=== PATIENT | female | born 1975 | race Caucasian/White ===

== ENCOUNTER 2016-11-09 19:54 | Emergency (ER) | payer OTHER ==
[2016-11-09 20:43] LABS: BASOPHIL 0.8 % (0-2); EOSINOPHIL 0.6 % (0-5); HCT 40.5 % (37.0-47.0); HGB 14.2 g/dl (12.5-16.0); LYMPHOCYTE 35.5 % (15-48); MCH 31.3 pg (25.0-31.0); MCHC 35.1 g/dL (32.0-36.0); MCV 89.4 fL (78.0-100.0); MONOCYTE 6.5 % (0-12); MPV 8.9 fL (6.0-9.5); NEUTROPHIL 56.6 % (41-80); PLT 456 K/uL (150-400); RBC 4.53 M/uL (4.20-5.40); RDW 13.5 % (11.5-14.0); WBC 6.6 K/uL (4.0-10.5)
[2016-11-09 21:02] LABS: TROPONIN T < 0.010 ng/mL
[2016-11-09 21:04] LABS: ALBUMIN 3.5 g/dL (3.5-5.0); BILIRUBIN - TOTAL 0.3 mg/dL (0.1-1.0); CREATININE 0.6 mg/dL (0.5-1.0); GLOBULIN (CALCULATION) 3.2 g/dL (2.2-4.2); TOTAL PROTEIN 6.7 g/dL (6.4-8.3)
[2016-11-09 21:05] LABS: PRO-BNP 974 pg/mL (0-125)
== END 2016-11-10 00:18 | disposition home or self-care (01) ==
LOC: FER 19:54
PROVIDERS: Emergency Medicine Emergency Medical Services
DX: J44.0 Chronic obstructive pulmonary disease with (acute) lower respiratory infection (principal); J20.9 Acute bronchitis, unspecified; F17.210 Nicotine dependence, cigarettes, uncomplicated; Z87.01 Personal history of pneumonia (recurrent); Z88.0 Allergy status to penicillin; Z88.1 Allergy status to other antibiotic agents; Z79.51 Long term (current) use of inhaled steroids; Z79.899 Other long term (current) drug therapy
CPT/HCPCS: 36415; 36600; 71010; 71275; 80053; 82803; 83880; 84484; 85025; 85379; 87040; 93005; 94640; 94760; J1885; J2060; J2270; J2405; J2930; Q9967

== ENCOUNTER 2020-12-21 07:14 | Emergency (ER) | payer OTHER ==
[~2020-12-21 07:14] MED LIST: BACLOFEN10 MG PO; BENTYL10 MG PO; BREO ELLIPTA INH 200; CARAFATE S500 MG/TSP PO; CARAFATE1 GM PO; COMBIVENT RESPIM4 GM INH; COMPAZINE10 MG PO; DEXILANT60 MG PO; DICYCLOMINE 10M10 MG PO; DUONEB 2.5-0.5M1 AMP NEB; HYDROXYZINE 10M10 MG PO; KLONOPIN0.5 MG PO; LIPITOR20 MG PO; OMEPRAZOLE 20MG20 MG PO; PHENERGAN25 M1 PO; PHENERGAN25 MG PR; PREDNISONE 20MG20 MG PO; PREDNISONE10 MG PO; PROAIR HFA8.5 GM INH; PROMETHAZINE 2525 MG PO; QUETIAPINE FUM400 MG PO; RANITIDINE HCL150 M1 PO; RANITIDINE HCL150 MG PO; REMERON15 MG PO; VENTOLIN (2.5 MG/3 M INH
[2020-12-21 07:43] LABS: BASOPHIL 0.2 % (0-2); EOSINOPHIL 0 % (0-5); HCT 39.8 % (37.0-47.0); HGB 13.8 g/dl (12.5-16.0); LYMPHOCYTE 12.1 % (15-48); MCH 29.2 pg (25.0-31.0); MCHC 34.7 g/dL (32.0-36.0); MCV 84.3 fL (78.0-100.0); MONOCYTE 3.5 % (0-12); NEUTROPHIL 83.9 % (41-80); NRBC 0; PLT 357 K/uL (150-400); RBC 4.72 M/uL (4.20-5.40); WBC 14.7 K/uL (4.0-10.5)
[2020-12-21 08:05] LABS: ALBUMIN 3.8 g/dL (3.4-5.0); BILIRUBIN - TOTAL 0.6 mg/dL (0.2-1.0); BUN/CREAT RATIO (CALC) 13.8 RATIO; CREATININE 0.65 mg/dL (0.51-0.95); GLOBULIN (CALCULATION) 4.3 g/dL; POTASSIUM 3.2 mmol/L (3.5-5.1); TOTAL PROTEIN 8.1 g/dL (6.4-8.2)
[2020-12-21 08:10] LABS: LACTIC ACID 2.2 mmol/L (0.4-1.9)
[2020-12-21 08:43] LABS: BILIRUBIN NEGATIVE (NEGATIVE); BLOOD NEGATIVE Ery/uL (NEGATIVE); CLARITY CLEAR (CLEAR); COLOR YELLOW (YELLOW); GLUCOSE (U) NORMAL (NORMAL); LEUKOCYTES NEGATIVE Leu/uL (NEGATIVE); NITRITE NEGATIVE (NEGATIVE); PROTEIN 1+ mg/dL (NEGATIVE); UROBILINOGEN 0.2 mg/dL (0.2-1.0); pH >=9.0 (5.0-9.0)
[2020-12-21 08:52] LABS: BACTERIA TRACE; URINARY RBC RARE
== END 2020-12-21 12:43 | disposition home or self-care (01) ==
LOC: FER 07:14
PROVIDERS: Emergency Medicine
DX: K31.84 Gastroparesis (principal); R51.9 Headache, unspecified; J44.9 Chronic obstructive pulmonary disease, unspecified; F17.200 Nicotine dependence, unspecified, uncomplicated; Z98.890 Other specified postprocedural states; Z88.0 Allergy status to penicillin; Z88.1 Allergy status to other antibiotic agents; Z87.19 Personal history of other diseases of the digestive system
CPT/HCPCS: 36415; 74022; 80053; 81001; 83605; 83690; 85025; J1200; J1885; J2270; J2405; J2765; J7030; Q9967

== ENCOUNTER → 2021-04-30 | Day surgery (SDC) | payer OTHER ==
[~2021-04-30] VITALS: Ht 170.2 cm; Wt 90.7 kg
[~2021-04-30] MED LIST changes: +BROMPHENIR-PSE118 ML PO; +COMBIVENT RESPIM4 GM PO; +HABITROL14 MG TOP; +LANSOPRAZOLE30 MG PO; +LINZESS145 MCG PO; +LIPITOR40 MG PO; +LISINOPRIL20 MG PO; +MUCINEX600 MG PO; +NORCO 5-325 TA1 EACH PO; +PEPCID AC20 MG PO; +PERCOCET 5-3251 EACH PO; +PHENERGAN12.5 M1 PO; +REGLAN10 MG PO; +SEROQUEL 100MG100 MG PO; +VIBRAMYCIN100 MG PO; +ZOFRAN4 M1 PO
[2021-04-30 09:49] LABS: HCT 34.9 % (37.0-47.0); HGB 11.3 g/dl (12.5-16.0); MCH 28.5 pg (25.0-31.0); MCHC 32.4 g/dL (32.0-36.0); MCV 88.1 fL (78.0-100.0); MPV 10.1 fL (6.0-9.5); RBC 3.96 M/uL (4.20-5.40); RDW 16.8 % (11.5-14.0); WBC 7.3 K/uL (4.0-10.5)
[2021-04-30 10:24] LABS: BUN/CREAT RATIO (CALC) 7.4 RATIO; CREATININE 0.81 mg/dL (0.51-0.95); POTASSIUM 4.3 mmol/L (3.5-5.1)
== END | disposition home or self-care (01) ==
LOC: FAS 09:03
PROVIDERS: Obstetrics & Gynecology
DX: N93.9 Abnormal uterine and vaginal bleeding, unspecified (principal); I10 Essential (primary) hypertension; F41.9 Anxiety disorder, unspecified; J44.9 Chronic obstructive pulmonary disease, unspecified; N83.209 Unspecified ovarian cyst, unspecified side; Z79.899 Other long term (current) drug therapy; Z88.0 Allergy status to penicillin; Z88.1 Allergy status to other antibiotic agents; Z87.891 Personal history of nicotine dependence
CPT/HCPCS: 36415; 80048; 84703; 86850; 86900; 86901; 93005; J1100; J1170; J1885; J2250; J2405; J2704; J3010; J7120

== ENCOUNTER 2021-05-09 12:53 | Emergency (ER) | payer OTHER ==
[~2021-05-09 12:53] MED LIST changes: -NORCO 5-325 TA1 EACH PO
[2021-05-09] MEDS ORDERED: NORCO 5-325 TA1 EACH PO (16:27)
== END 2021-05-09 16:00 | disposition home or self-care (01) ==
LOC: FER 12:53
DX: I80.01 Phlebitis and thrombophlebitis of superficial vessels of right lower extremity (principal); I10 Essential (primary) hypertension; J44.9 Chronic obstructive pulmonary disease, unspecified; Z88.0 Allergy status to penicillin
CPT/HCPCS: 93971

== ENCOUNTER 2021-08-20 11:49 | Emergency (ER) | payer OTHER ==
[~2021-08-20 11:49] MED LIST changes: +NORCO 5-325 TA1 EACH PO
[2021-08-20] MEDS ORDERED: NORCO 5-325 TA1 EACH PO (13:06)
[2021-08-20] MEDS ORDERED: MEDROL 4MG DOSEP4 MG PO (13:06)
[2021-08-20 13:33] LABS: CORONAVIRUS 2019 SARS-COV-2 NEGATIVE (NEGATIVE); INFLUENZA A NAA NEGATIVE (NEGATIVE)
== END 2021-08-20 13:51 | disposition home or self-care (01) ==
LOC: FER 11:49
PROVIDERS: Nurse Practitioner Family
DX: S22.42XA Multiple fractures of ribs, left side, initial encounter for closed fracture (principal); I10 Essential (primary) hypertension; J44.9 Chronic obstructive pulmonary disease, unspecified; Z20.822 Contact with and (suspected) exposure to COVID-19; Z88.0 Allergy status to penicillin; Z88.1 Allergy status to other antibiotic agents; Z79.899 Other long term (current) drug therapy
CPT/HCPCS: 71101; J1100; U0002

== ENCOUNTER 2021-08-26 12:29 | Emergency (ER) | payer OTHER ==
[~2021-08-26 12:29] MED LIST changes: +MEDROL 4MG DOSEP4 MG PO
[2021-08-26] MEDS ORDERED: PREDNISONE 20MG20 MG PO (13:27)
== END 2021-08-26 14:11 | disposition home or self-care (01) ==
LOC: FER 12:29
DX: J44.1 Chronic obstructive pulmonary disease with (acute) exacerbation (principal); S22.42XA Multiple fractures of ribs, left side, initial encounter for closed fracture; Z88.0 Allergy status to penicillin; Z88.1 Allergy status to other antibiotic agents; Z87.891 Personal history of nicotine dependence
CPT/HCPCS: 71046; 94664; J1885; J7512

== ENCOUNTER 2021-09-26 17:21 | Emergency (ER) | payer OTHER ==
[2021-09-26] MEDS ORDERED: CYCLOBENZAPRINE10 MG PO (19:52)
[2021-09-26] MEDS ORDERED: NORCO 5-325 TA1 EACH PO (19:52)
== END 2021-09-26 20:30 | disposition home or self-care (01) ==
LOC: FER 17:21
DX: R07.81 Pleurodynia (principal); J44.9 Chronic obstructive pulmonary disease, unspecified; I10 Essential (primary) hypertension; F17.210 Nicotine dependence, cigarettes, uncomplicated; Z88.0 Allergy status to penicillin; Z88.1 Allergy status to other antibiotic agents
CPT/HCPCS: 71101; 94640; 94664

== ENCOUNTER 2022-03-21 03:27 | Emergency (ER) | payer OTHER ==
[~2022-03-21 03:27] MED LIST changes: +CYCLOBENZAPRINE10 MG PO
[2022-03-21 04:31] LABS: BASOPHIL 0.3 % (0-2); EOSINOPHIL 0.1 % (0-5); HCT 42.7 % (37.0-47.0); HGB 13.9 g/dl (12.5-16.0); LYMPHOCYTE 5.5 % (15-48); MCH 29.1 pg (25.0-31.0); MCHC 32.6 g/dL (32.0-36.0); MCV 89.5 fL (78.0-100.0); MONOCYTE 3.4 % (0-12); MPV 9.8 fL (6.0-9.5); NRBC 0; PLT 324 K/uL (150-400); RBC 4.77 M/uL (4.20-5.40); RDW 15.1 % (11.5-14.0)
[2022-03-21 04:57] LABS: ALBUMIN 3.7 g/dL (3.4-5.0); BILIRUBIN - TOTAL 0.3 mg/dL (0.2-1.0); BUN/CREAT RATIO (CALC) 7.2 RATIO; CREATININE 1.39 mg/dL (0.51-0.95); GLOBULIN (CALCULATION) 3.8 g/dL; POTASSIUM 4.5 mmol/L (3.5-5.1); TOTAL PROTEIN 7.5 g/dL (6.4-8.2)
[2022-03-21 06:05] LABS: BILIRUBIN NEGATIVE (NEGATIVE); BLOOD 1+ Ery/uL (NEGATIVE); CLARITY CLEAR (CLEAR); COLOR YELLOW (YELLOW); GLUCOSE (U) NORMAL (NORMAL); LEUKOCYTES NEGATIVE Leu/uL (NEGATIVE); NITRITE NEGATIVE (NEGATIVE); PROTEIN NEGATIVE (NEGATIVE); SPECIFIC GRAVITY <=1.005 (1.001-1.030); UROBILINOGEN 0.2 mg/dL (0.2-1.0)
[2022-03-21 06:23] LABS: URINARY WBC RARE
[2022-03-21 06:24] LABS: BACTERIA TRACE
[2022-03-21 08:33] LABS: CORONAVIRUS 2019 SARS-COV-2 NEGATIVE (NEGATIVE); INFLUENZA A NAA NEGATIVE (NEGATIVE)
[2022-03-21 10:22] LABS: BUN/CREAT RATIO (CALC) 8.1 RATIO; CREATININE 1.23 mg/dL (0.51-0.95); POTASSIUM 4.8 mmol/L (3.5-5.1)
== END 2022-03-21 18:38 | disposition other institution (70) ==
LOC: FER 03:27
PROVIDERS: Emergency Medicine; Internal Medicine
DX: I74.10 Embolism and thrombosis of unspecified parts of aorta (principal); I74.3 Embolism and thrombosis of arteries of the lower extremities; I10 Essential (primary) hypertension; J44.9 Chronic obstructive pulmonary disease, unspecified; Z79.899 Other long term (current) drug therapy; Z20.822 Contact with and (suspected) exposure to COVID-19
CPT/HCPCS: 36415; 71045; 73502; 80048; 80053; 81001; 83605; 83880; 84145; 84484; 85025; 85379; 85730; 87040; 93005; J1644; J2185; J7030; Q0162; U0002